=== PATIENT | female | born 2005 | race Hispanic/Latino ===

== ENCOUNTER → 2023-01-10 | Outpatient (CLI) | payer MEDICAID ==
[~2023-01-10] MED LIST: IOHEXOL 350 MG/ML 100ML INFUS..BTL IV ONE
== END | disposition home or self-care (01) ==
LOC: RAH 10:34
PROVIDERS: ATTEND Student in an Organized Health Care Education/Training Program
DX: R55 Syncope and collapse (principal)
CPT/HCPCS: 75574; Q9967 ×2